=== PATIENT | female | born 1965 | race Caucasian/White ===

== ENCOUNTER → 2017-04-13 | Outpatient (CLI) | payer BC | LOC: MC.RAD 16:30 | DX: Z12.31 Encounter for screening mammogram for malignant neoplasm of breast (principal) ==

== ENCOUNTER → 2018-04-14 | Outpatient (CLI) | payer BC | LOC: MC.RAD 14:48 | DX: Z12.31 Encounter for screening mammogram for malignant neoplasm of breast (principal) ==

== ENCOUNTER → 2019-05-01 | Outpatient (CLI) | payer BC | LOC: MC.RAD 07:45 | DX: Z12.31 Encounter for screening mammogram for malignant neoplasm of breast (principal) ==

== ENCOUNTER 2020-04-26 05:59 | Day surgery (SDC) | payer BC ==
[~2020-04-26] VITALS: Ht 167.6 cm; Wt 71.1 kg
[2020-04-26 06:45] VITALS: BP 130/92; PULSE 72; TEMP 97.1
[2020-04-26 07:40] VITALS: BP 97/53; PULSE 73; TEMP 97.6
--- NOTE | 2020-04-26 07:40 | NUR ---
PATIENT TO SAME DAY SUITE POST PROCEDURE VIA CART WITH ISAIAH WHITE. UP TO CHAIR WITH ASSIST AND MADE COMFORTABLE AND GIVE WARM BLANKETS FOR COMFORT. DENIES NAUSEA OR PAIN AT THIS TIME. VITAL SIGNS TAKEN AND WNL. OFFERED FOOD AND DRINK. WILL TAKE MUFFIN AND COFFEE. CALL LIGHT WITHIN REACH. RESTING COMFORTABLY IN CHAIR.
[2020-04-26 07:45] VITALS: BP 104/72; PULSE 74
--- NOTE | 2020-04-26 07:45 | NUR ---
REFRESHMENT GIVEN, COTINUES TO REST COMFORTABLE IN CHAIR. NO COMPLAINTS AT THIS TIME.
[2020-04-26 08:00] VITALS: BP 104/68; PULSE 75
--- NOTE | 2020-04-26 08:00 | NUR ---
RESTING COMFORTABLY IN CHAIR. NO NAUSEA WITH COFFEE AND MUFFIN. FEELING ALERT AND READY TO GO. AT [facility] TO SPEAK WITH PATIENT @ [id number].
[2020-04-26 08:15] VITALS: BP 101/66; PULSE 68
--- NOTE | 2020-04-26 08:15 | NUR ---
PATIENT AWAKE AND ALERT, READY TO GO HOME. NO NAUSEA OR PAIN. IV SITE WITHOUT REDNESS OR SWELLING, DISCONTINUED @ 0829.
--- NOTE | 2020-04-26 08:40 | NUR ---
DISMISSAL INSTRUCTIONS REVIEWED WITH PATIENT. HARD COPIES GIVEN. PATIENT DENIES QUESTIONS AND SIGNS IN ACKNOWLEDGMENT OF RECEIPT. OUT OF CHAIR TO DRESS FOR HOME. STABLE ON FEET.
== END 2020-04-26 08:50 | disposition home or self-care (01) ==
LOC: SDCO 05:59
DX: Z12.11 Encounter for screening for malignant neoplasm of colon (principal); K63.5 Polyp of colon; Z80.0 Family history of malignant neoplasm of digestive organs; Z88.8 Allergy status to other drugs, medicaments and biological substances; Z20.828 Contact with and (suspected) exposure to other viral communicable diseases
CPT/HCPCS: J2250; J2405; J3010; J7030

== ENCOUNTER → 2020-05-03 | Outpatient (CLI) | payer BC | LOC: MC.RAD 14:39 | DX: Z12.31 Encounter for screening mammogram for malignant neoplasm of breast (principal) ==

== ENCOUNTER → 2021-06-09 | Outpatient (CLI) | payer BC | LOC: MC.RAD 13:45 | DX: Z12.31 Encounter for screening mammogram for malignant neoplasm of breast (principal) ==